=== PATIENT | female | born 1980 | race American Indian/Alaskan Native ===

== ENCOUNTER 2016-09-29 05:50 | Day surgery (SDC) | payer MEDICARE ==
[2016-09-24 10:37] LABS: Basophils % (Auto) 1.6 % (0.0-1.8); Eosinophils % (Auto) 0.8 % (0.0-4.3); Hematocrit 28.7 % (30.3-42.9); Hemoglobin 8.7 gm/dl (10.1-14.3); Mean Corpuscular HGB Conc 30 % (30-34); Platelet Count 280 K/mm3 (140-440); Red Blood Count 4.14 M/mm3 (3.65-5.03); Red Cell Distribution Width 18.6 % (13.2-15.2); White Blood Count 3.9 K/mm3 (4.5-11.0)
[2016-09-24 10:40] LABS: Mean Corpuscular Hemoglobin 21 pg (28-32); Mean Corpuscular Volume 69 fl (79-97)
[2016-09-29] MEDS ORDERED: NACL 0.9% 1000 ML 1,000 ML IV SCH (06:00)
[2016-09-29] MEDS ORDERED: VERSED IV NR (06:00)
[2016-09-29] MEDS ORDERED: NACL BACTERIOSTATIC INFILTRATI ONE (06:52)
[2016-09-29] MEDS: PEPCID PO NR (06:58)
[2016-09-29] MEDS ORDERED: DIPRIVAN 10 MG/ML IV ONE (07:28)
[2016-09-29] MEDS ORDERED: DILAUDID ONE ×2 (07:29→08:39)
[2016-09-29] MEDS ORDERED: DECADRON ONE (07:43)
[2016-09-29] MEDS ORDERED: XYLOCAINE MPF 2% ONE (07:44)
[2016-09-29] MEDS ORDERED: NACL 0.9% IR ONE (08:00)
[2016-09-29] MEDS ORDERED: TORADOL ONE (08:06)
[2016-09-29] MEDS ORDERED: ZOFRAN ONE (08:06)
[2016-09-29 11:05] VITALS: BP 124/84
--- NOTE | 2016-09-29 15:23 | Operative Report ---
Operative Report Operative Report: Date of procedure: 09/29/2016 Pre-operative diagnosis: Dysfunctional uterine bleeding Post-operative diagnosis: Same as above Procedure name(s): Hysteroscopy; endometrial ablation via NovaSure Surgeon: Mindi Albarran M.D. Pastry Decorator: None Anesthesia: General endotracheal anesthesia Findings thickened endometrium Indication: 36-year-old 005 with a history of dysfunctional uterine bleeding. Patient had attempted medical management but is limited secondary to her history of DVT. Procedure The patient was taken to the operating room and given general tracheal anesthesia without complication. The patient was prepped and draped in a normal sterile fashion. A bivalve speculum was placed in the patient's vagina single-tooth tenaculums placed on the anterior lip of the cervix. The cervical os was dilated with graduated dilators. A uterine sound was inserted. The hysteroscope was then placed. Insufflation of the uterine cavity was performed with normal saline. Gen. survey of the uterine cavity revealed thickened endometrium. The hysteroscope was then removed. The NovaSure device was then inserted. The endometrial length was 6.0 and the uterine width was 4.3 cm. The device was engaged and it passed the surveillance of the uterine cavity. The NovaSure device was then deployed with a energy of 142 that lasted for 53 seconds. The NovaSure device was then removed. The hysteroscope was again reinserted. There was evidence of charring of the endometrial surface. The remainder of the vaginal instruments were then removed atraumatically. The patient was then successfully extubated taken to the recovery room. All sponge laps and needle counts were correct 2.
== END 2016-09-29 05:51 | disposition home or self-care (01) ==
LOC: OR 05:50
PROVIDERS: ATTEND Obstetrics & Gynecology
DX: N93.8 Other specified abnormal uterine and vaginal bleeding (principal); F32.9 Major depressive disorder, single episode, unspecified; F41.9 Anxiety disorder, unspecified; D64.9 Anemia, unspecified; Z98.51 Tubal ligation status; Z72.89 Other problems related to lifestyle; Z86.718 Personal history of other venous thrombosis and embolism
CPT/HCPCS: 36415; 58563; 84703; 85025; A4217; J1100; J1170; J1885; J2250; J2405; J2704; J7030

== ENCOUNTER 2017-07-15 08:43 | Day surgery (SDC) | payer MEDICARE ==
[2017-07-15] MEDS ORDERED: NACL 0.9% 1000 ML 1,000 ML IV SCH (09:00)
[2017-07-15] MEDS ORDERED: ANCEF/STERILE WATER 2 GM/20 ML 2 GM/20 ML SYRINGE IV NR (09:00)
--- NOTE | 2017-07-15 09:03 | History and Physical Report ---
History of Present Illness Date of examination: 07/15/17 Chief complaint: dysfunctional uterine bleeding History of present illness: Pt is a 37 year old -French female presents for endometrial sampling secondary to pt inability to tolerated in office biopsy. She has a h/o multiple DVTs and reports being non-compliant with her prescribed Coumadin, last dose in 2015. Past History Past Medical History: deep vein thrombosis (2002, 2003 and 2015), other ( depression, anxiety ) Past Surgical History: THERAPIST RESPIRATORY/uterine surgery (tubal ligation; endometrial ablation , ) Family/Genetic History: hypertension Social history: no significant social history Medications and Allergies Allergies Allergy/AdvReac Type Severity Reaction Status Date / Time No Known Allergies Allergy Verified 07/12/17 14:37 Home Medications Medication Instructions Recorded Confirmed Last Taken Type No Known Home Medications [No 07/12/17 07/12/17 Unknown History Reported Home Medications] Active Meds: Active Medications Cefazolin Sodium (Ancef/Sterile Water 2 Gm/20 Ml) 2 gm in 20 mls @ 80 mls/hr IV PREOP NR PRN Reason: Protocol Sodium Chloride (Nacl 0.9% 1000 Ml) 1,000 mls @ 100 mls/hr IV DIRECT IRENE Review of Systems All systems: negative - Physical Exam Breasts: Positive: deferred Cardiovascular: Regular rate Lungs: Positive: Clear to auscultation Abdomen: Positive: soft Extremities: Negative: tenderness, edema Results All other labs normal. Assessment and Plan A: Dysfunctional Uterine Bleeding Inability to tolerate in-office biopsy H/o DVT non-compliant with anticoagulation P: Lower extremity venous dopplers If negative, Heparin 5000 units subcu and SCDs for DVT prophylaxis during dilation and curettage with hysteroscopy.
--- NOTE | 2017-07-15 10:24 | Anesthesia Consultation ---
Anesthesia Consult and Med Hx Date of service: 07/15/17 - Airway Anesthetic Teeth Evaluation: Good ROM Head & Neck: Adequate Mental/Hyoid Distance: Adequate Mallampati Class: Class II Intubation Access Assessment: Good - Pulmonary Exam CTA: Yes - Cardiac Exam Cardiac Exam: No Murmur - Pre-Operative Health Status ASA Pre-Surgery Classification: ASA1 Proposed Anesthetic Plan: General - Central Nervous System Hx Psychiatric Problems: Yes - Gastrointestinal Hx Gastroesophageal Reflux Disease: No - Endocrine Hx Thyroid Disease: No - Hematic Hx Anemia: Yes (resolved) - Other Systems Hx Alcohol Use: Yes (occas) Hx Cancer: No
--- NOTE | 2017-07-15 10:24 | Anesthesia Day of Surgery ---
Anesthesia Day of Surgery - Day of Surgery Patient Examined: Yes Patient H&P Reviewed: Yes Patient is NPO: Yes
[2017-07-15 10:58] LABS: INR 0.95 (0.87-1.13)
[2017-07-15 11:00] LABS: Hematocrit 30.5 % (30.3-42.9); Hemoglobin 9.4 gm/dl (10.1-14.3); Mean Corpuscular HGB Conc 31 % (30-34); Mean Corpuscular Volume 72 fl (79-97); Platelet Count 307 K/mm3 (140-440); Red Blood Count 4.26 M/mm3 (3.65-5.03); White Blood Count 3.6 K/mm3 (4.5-11.0)
[2017-07-15] MEDS ORDERED: VERSED IV NR (11:00)
[2017-07-15 11:06] LABS: Mean Corpuscular Hemoglobin 22 pg (28-32)
[2017-07-15] MEDS ORDERED: MONSEL'S TP ONE (11:12)
[2017-07-15] MEDS ORDERED: SILVER NITRATE TP ONE ×2 (11:12→12:36)
[2017-07-15] MEDS ORDERED: HEPARIN SUB-Q NR (11:15)
[2017-07-15] MEDS ORDERED: DIPRIVAN 10 MG/ML IV ONE (11:37)
[2017-07-15] MEDS ORDERED: SUBLIMAZE ONE (11:37)
[2017-07-15] MEDS ORDERED: XYLOCAINE MPF 2% ONE (11:50)
[2017-07-15] MEDS ORDERED: NACL 0.9% IR ONE ×2 (12:22)
[2017-07-15] MEDS ORDERED: ZOFRAN ONE (12:47)
[2017-07-15] MEDS ORDERED: NACL 0.9% 1000 ML 1,000 ML ONE (12:48)
--- NOTE | 2017-07-15 12:52 | Operative Report ---
Operative Report Operative Report: Date of procedure: 07/15/17 Preoperative diagnosis: 1) Dysfunctional Uterine Bleeding 2) H/o endometrial ablation 3) H/o DVT Postoperative diagnosis: Same Procedure: 1) Hysteroscopy 2) Dilation and curettage Surgeon: Summer Marquez M.D. Anesthesia: Gen. with LMA Findings: Small anteverted uterus Shaggy endometrium EBL: Minimal IV fluid: 900 mL Urine output: 200 mL prior to the procedure Drains: None Specimens: Endometrial curettings to pathology Complications: None. Counts correct 2 Physician: Stable to PACU Indication for procedure: Patient is a 37-year-old female 5 para 6006 who presents with a history of dysfunctional uterine bleeding and a prior endometrial ablation who presents for endometrial sampling secondary to inability to tolerate in office biopsy. Operation in detail: After the risks, benefits, alternatives, complications the procedure were explained to the patient she gave informed consent for the procedure. She received heparin 5000 units subcutaneously preoperatively. When taken to the operating room and placed in the dorsal supine position with her IV noted to be running well at her SCDs noted to be functioning. General anesthesia was induced without difficulty. She was ultimately placed in the dorsal lithotomy position and prepped and draped in normal sterile fashion. A timeout was performed. A catheter was used to drain the bladder of 200 mL of clear urine. An open sided bivalve speculum was placed into the vagina for adequate visualization of the cervix. The anterior lip of the cervix was then grasped with single-tooth tenaculum. The uterus was then gently sounded to 7 cm. The cervix was then dilated sequentially with Clifford dilators to a #15 with some difficulty. An 5 mm hysteroscope was then used to visualize the endometrial cavity which revealed shaggy endometrium and some difficulty passing the hysteroscope to the fundus. At this time hysteroscope was removed and anticipate patient safety. A gentle sharp endometrial curettage was performed and the curettings were sent to pathology. At this time attention is removed atraumatically from the uterus and vagina and the procedure was ended. The patient was returned to the dorsal supine position and extubated without difficulty. She subsequently taken to the PACU in stable condition. The patient tolerated the procedure well and all instrument and raytec counts were correct 2.
--- NOTE | 2017-07-15 12:57 | Short Stay Summary ---
Short Stay Documentation Date of service: 07/15/17 - History H&P: dictated Social history: no significant social history - Allergies and Medications Current Medications: Allergies No Known Allergies Allergy (Verified 07/12/17 14:37) Home Medications Medication Instructions Recorded Confirmed Last Taken Type RX: No Known Home Medications [No 07/12/17 07/12/17 Unknown History Reported Home Medications] Active Medications Heparin Sodium (Porcine) (Heparin) 5,000 unit SUB-Q PREOP NR Stop: 07/15/17 13:00 Last Admin: 07/15/17 11:06 Dose: 5,000 unit Cefazolin Sodium (Ancef/Sterile Water 2 Gm/20 Ml) 2 gm in 20 mls @ 80 mls/hr IV PREOP NR PRN Reason: Protocol Stop: 07/15/17 15:00 Sodium Chloride (Nacl 0.9% 1000 Ml) 1,000 mls @ 100 mls/hr IV DIRECT IRENE Last Admin: 07/15/17 10:57 Dose: 100 mls/hr Midazolam HCl (Versed) 2 mg IV ONCE NR Stop: 07/15/17 14:00 Last Admin: 07/15/17 10:58 Dose: 2 mg - Physical exam Breasts: deferred - Brief post op/procedure progress note Date of procedure: 07/15/17 Pre-op diagnosis: Dysfunctional Uterine Bleeding Post-op diagnosis: same Procedure: Hysteroscopy, dilation and curettage Anesthesia: GETA (LMA) Findings: Small anteverted uterus Shaggy endometrium Surgeon: RITA MARQUEZ Estimated blood loss: minimal Pathology: list (endometrial curettings) Specimen disposition: to lab Condition: stable - Hospital course Hospital course: Pt underwent hysteroscopy, dilation and curettage which she tolerated well. She was observed in the PACU until she met discharge criteria. She will follow up in 2 weeks in office with Dr Marquez. - Disposition Condition at discharge: Stable Disposition: DC-01 TO HOME OR SELFCARE - Discharge Diagnoses (1) Dysfunctional uterine bleeding Status: Acute (2) H/O deep venous thrombosis Status: Acute Short Stay Discharge Plan Activity: other (Nothing in vagina x 4 weeks ) Weight Bearing Status: Full Weight Bearing Diet: regular Follow up with: COREY BLOCK MD [Primary Care Provider] - 7 Days RITA MARQUEZ MD [Staff Physician] - 08/01/17 (postoperative appt- please call the office to schedule. ) Forms: Outpatient Surgery DC Inst. Prescriptions: Ibuprofen [Motrin] 800 mg PO Q8HR PRN #30 tablet PRN Reason: Pain oxyCODONE /ACETAMINOPHEN [Percocet 5/325] 1 tab PO Q6HR PRN #20 tablet PRN Reason: Pain
[2017-07-15] MEDS: DILAUDID IV PRN ×2 (13:00→13:10)
[2017-07-15] MEDS ORDERED: DILAUDID ONE (13:04)
[2017-07-15] MEDS ORDERED: MOTRIN PO PRN (13:30)
[2017-07-15 14:16] VITALS: BP 123/79
--- NOTE | 2017-07-17 14:39 | Vascular Lab Report ---
LOWER EXTREMITY VENOUS DUPLEX: REASON FOR EXAM: Preop evaluation. COMMENTS ON THE RIGHT: All veins visualized are freely compressible without evidence of internal echogenicity. Flow is spontaneous and phasic throughout. COMMENTS ON THE LEFT: Evidence of internal echogenicity in the left common and superficial femoral vein and popliteal. The remaining veins visualized are freely compressible without evidence of internal echogenicity. Spontaneous and phasic flow is present proximally.Flow is spontaneous and phasic throughout. IMPRESSION: No evidence of acute deep venous thrombosis in either lower extremity. There is presence of chronic recanalized DVT in the left common femoral vein, superficial femoral vein and popliteal.
== END 2017-07-15 15:05 | disposition home or self-care (01) ==
LOC: OR 08:43
PROVIDERS: ATTEND Obstetrics & Gynecology
DX: N93.8 Other specified abnormal uterine and vaginal bleeding (principal); N71.9 Inflammatory disease of uterus, unspecified; I10 Essential (primary) hypertension; F32.9 Major depressive disorder, single episode, unspecified; F41.9 Anxiety disorder, unspecified; Z86.718 Personal history of other venous thrombosis and embolism; Z98.890 Other specified postprocedural states; Z98.51 Tubal ligation status; Z79.899 Other long term (current) drug therapy
CPT/HCPCS: 36415; 58558; 81025; 85027; 85610; 85730; 86850; 86900; 86901; 88305; 93970; A4217; J0690; J1170; J1644; J2250; J2405; J2704; J3010; J7030

== ENCOUNTER 2017-10-03 09:04 | Outpatient (CLI) | payer OTHER ==
--- NOTE | 2017-10-03 10:56 | XRay Report ---
XRAY LUMBAR SPINE THREE VIEWS: 10/03/17 09:04:00 CLINICAL: Back pain. FINDINGS: Mild lower lumbar dextroscoliosis. Normal vertebral body height, alignment and disc spaces. Lower lumbar facet joint sclerosis. The pedicles are intact. No fracture. Normal soft tissues. IMPRESSION: Mild lower lumbar scoliosis and lower lumbar facet joint arthropathy.
== END 2017-10-03 09:05 | disposition home or self-care (01) ==
LOC: XRAY 09:04
PROVIDERS: ATTEND Internal Medicine
DX: M41.86 Other forms of scoliosis, lumbar region (principal); M12.88 Other specific arthropathies, not elsewhere classified, other specified site; F32.9 Major depressive disorder, single episode, unspecified; F41.9 Anxiety disorder, unspecified; I74.9 Embolism and thrombosis of unspecified artery
CPT/HCPCS: 72100

== ENCOUNTER 2018-02-27 19:47 | Emergency (ER) | payer MEDICAID, OTHER ==
[2018-02-27 20:05] VITALS: BP 125/84
[2018-02-27] MEDS ORDERED: PERCOCET 5/325 PO ONE (21:52)
--- NOTE | 2018-02-27 22:07 | Emergency Department Report ---
Abscess Boil [facility] Chief Complaint: Skin/Abscess/Foreign Body Stated Complaint: BOIL ON LEG Time Seen by Provider: 02/27/18 21:52 Duration: 1 Day Home Medications: Previous Rx's Medication Instructions Recorded Last Taken Type Ibuprofen [Motrin] 800 mg PO Q8HR PRN #30 tablet 07/15/17 Unknown Rx oxyCODONE /ACETAMINOPHEN [Percocet 1 tab PO Q6HR PRN #20 tablet 07/15/17 Unknown Rx 5/325] Allergies/Adverse Reactions: Allergies Allergy/AdvReac Type Severity Reaction Status Date / Time No Known Allergies Allergy Verified 02/27/18 19:59 ED Review of Systems ROS: Stated complaint: BOIL ON LEG Other details as noted in HPI ED Past Medical Hx - Past Medical History Previous Medical History?: Yes Hx Deep Vein Thrombosis: Yes Additional medical history: Blood clot in left leg (03,04,14) and groin area 14 - Surgical History Past Surgical History?: Yes Additional Surgical History: tubal ligation - Social History Smoking Status: Never Smoker Substance Use Type: Alcohol - Medications Home Medications: Home Medications Medication Instructions Recorded Confirmed Last Taken Type Ibuprofen [Motrin] 800 mg PO Q8HR PRN #30 tablet 07/15/17 Unknown Rx oxyCODONE /ACETAMINOPHEN [Percocet 1 tab PO Q6HR PRN #20 tablet 07/15/17 Unknown Rx 5/325] ED Abscess Boil Physical Exam - Exam General: Vital signs noted. No distress. Alert and acting appropriately. ED Course Vital Signs 02/27/18 20:00 Temperature 98.8 F Pulse Rate 93 H Respiratory 18 Rate Blood Pressure 125/84 O2 Sat by Pulse 100 Oximetry Critical care attestation.: If time is entered above; I have spent that time in minutes in the direct care of this critically ill patient, excluding procedure time. ED Disposition Condition: Stable Referrals: PRIMARY CARE, [Primary Care Provider] - 3-5 Days
--- NOTE | 2018-02-27 22:11 | Emergency Department Report ---
ED General Adult HPI - General Chief complaint: Skin/Abscess/Foreign Body Stated complaint: BOIL ON LEG Time Seen by Provider: 02/27/18 21:52 Source: patient Mode of arrival: Ambulatory Limitations: No Limitations - History of Present Illness Initial comments: 38-year-old -Brazilian female presents to the emergency room with complaint of a possible abscess between her legs today. Patient reports the pain as a 9 out of 10. Patient reports currently takes no medications has no known drug allergies and has a history of DVTs 5 in the left leg. -: This morning Location: buttocks Severity scale (0 -10): 9 Consistency: constant Worsens with: other (sitting on her bottom) Associated Symptoms: denies other symptoms Treatments Prior to Arrival: none - Related Data Previous Rx's Medication Instructions Recorded Last Taken Type Ibuprofen [Motrin] 800 mg PO Q8HR PRN #30 tablet 07/15/17 Unknown Rx oxyCODONE /ACETAMINOPHEN [Percocet 1 tab PO Q6HR PRN #20 tablet 07/15/17 Unknown Rx 5/325] Hydrocortisone [Anusol-Hc] 30 gm RC Q8H PRN #1 box 02/27/18 Unknown Rx traMADol [Ultram 50 MG tab] 50 mg PO Q6HR PRN #12 tablet 02/27/18 Unknown Rx Allergies Allergy/AdvReac Type Severity Reaction Status Date / Time No Known Allergies Allergy Verified 02/27/18 19:59 ED Review of Systems ROS: Stated complaint: BOIL ON LEG Other details as noted in HPI Constitutional: denies: chills, fever Gastrointestinal: denies: abdominal pain, nausea, diarrhea Skin: lesions ED Past Medical Hx - Past Medical History Previous Medical History?: Yes Hx Deep Vein Thrombosis: Yes Additional medical history: Blood clot in left leg (03,04,14) and groin area 14 - Surgical History Past Surgical History?: Yes Additional Surgical History: tubal ligation - Social History Smoking Status: Never Smoker Substance Use Type: Alcohol - Medications Home Medications: Home Medications Medication Instructions Recorded Confirmed Last Taken Type Ibuprofen [Motrin] 800 mg PO Q8HR PRN #30 tablet 07/15/17 Unknown Rx oxyCODONE /ACETAMINOPHEN [Percocet 1 tab PO Q6HR PRN #20 tablet 07/15/17 Unknown Rx 5/325] Hydrocortisone [Anusol-Hc] 30 gm RC Q8H PRN #1 box 02/27/18 Unknown Rx traMADol [Ultram 50 MG tab] 50 mg PO Q6HR PRN #12 tablet 02/27/18 Unknown Rx ED Physical Exam - General Limitations: No Limitations General appearance: alert, in no apparent distress - Head Head exam: Present: atraumatic, normocephalic - Eye Eye exam: Present: EOMI - ENT ENT exam: Present: mucous membranes moist - Rectal Rectal exam: Present: normal rectal tone, hemorrhoids (non-strangulated or incarcerated external hemorrhoid) - Neurological Exam Neurological exam: Present: alert, oriented X3 - Psychiatric Psychiatric exam: Present: normal affect, normal mood ED Course Vital Signs 02/27/18 20:00 Temperature 98.8 F Pulse Rate 93 H Respiratory 18 Rate Blood Pressure 125/84 O2 Sat by Pulse 100 Oximetry - Procedure Description Procedures done: Able to reduce hemorrhoid using gel lubricant. Patient was able to tolerated procedure well. ED Medical Decision Making - Medical Decision Making Patient has been evaluated by this provider fast track. Patient is given a Percocet for pain management. External hemorrhoid was able to be reduced by this provider with lubrication gel and digital rectal exam Discussed patient she needs to follow up with the procurement agent for further evaluation and treatment plan Discussed patient that is her hemorrhoid protrudes again with increased pain turns bluish or blackness she needs to return to the ER immediately. Discussed patient to take pain medication that I have prescribed for her. Patient has verbalized understanding. Critical care attestation.: If time is entered above; I have spent that time in minutes in the direct care of this critically ill patient, excluding procedure time. ED Disposition Clinical Impression: External hemorrhoid Disposition: DC-01 TO HOME OR SELFCARE Is pt being admited?: No Does the pt Need Aspirin: No Condition: Stable Instructions: Hemorrhoids (ED) Additional Instructions: Please use Anusol as needed for external hemorrhoids, and all for severe pain. Please follow-up with your procurement agent I have listed one below Prescriptions: Hydrocortisone [Anusol-Hc] 30 gm RC Q8H PRN #1 box PRN Reason: Hemorrhoids traMADol [Ultram 50 MG tab] 50 mg PO Q6HR PRN #12 tablet PRN Reason: Pain Referrals: PRIMARY CARE, [Primary Care Provider] - 3-5 Days [facility] [Provider Group] - 3-5 Days [facility] [Provider Group] - 3-5 Days Forms: Work/School Release Form(ED)
== END 2018-02-27 22:19 | disposition home or self-care (01) ==
LOC: ED 19:47
DX: K64.4 Residual hemorrhoidal skin tags (principal); Z86.718 Personal history of other venous thrombosis and embolism; Z98.51 Tubal ligation status
CPT/HCPCS: 99283

== ENCOUNTER 2018-09-06 06:07 | Observation (INO) | payer MEDICARE ==
[2018-08-31 12:21] LABS: Basophils % (Auto) 0.8 % (0.0-1.8); Eosinophils # (Auto) 0.1 K/mm3 (0.0-0.4); Eosinophils % (Auto) 1.6 % (0.0-4.3); Hematocrit 31.3 % (30.3-42.9); Hemoglobin 9.6 gm/dl (10.1-14.3); Lymphocytes # (Auto) 1.5 K/mm3 (1.2-5.4); Lymphocytes % (Auto) 32.3 % (13.4-35.0); Mean Corpuscular HGB Conc 31 % (30-34); Mean Corpuscular Volume 74 fl (79-97); Monocytes # (Auto) 0.3 K/mm3 (0.0-0.8); Monocytes % (Auto) 6.1 % (0.0-7.3); Platelet Count 302 K/mm3 (140-440); Red Blood Count 4.25 M/mm3 (3.65-5.03)
--- NOTE | 2018-09-01 07:20 | Anesthesia Consultation ---
Anesthesia Consult and Med Hx Date of service: 09/06/18 - Airway Anesthetic Teeth Evaluation: Good ROM Head & Neck: Adequate Mental/Hyoid Distance: Adequate Mallampati Class: Class II Intubation Access Assessment: Probably Good - Pulmonary Exam CTA: Yes - Cardiac Exam Cardiac Exam: RRR - Pre-Operative Health Status ASA Pre-Surgery Classification: ASA3 - Pulmonary Hx Smoking: No Hx Asthma: No Hx Respiratory Symptoms: No - Cardiovascular System Hx Hypertension: No - Central Nervous System Hx Psychiatric Problems: Yes - Gastrointestinal Hx Gastroesophageal Reflux Disease: No - Endocrine Hx Non-Insulin Dependent Diabetes: Yes Hx Thyroid Disease: No - Hematic Hx Anemia: Yes - Other Systems Hx Alcohol Use: Yes (occas) Hx Cancer: No - Additional Comments Anesthesia Medical History Comments: No GAC, No FHAC
--- NOTE | 2018-09-05 14:06 | History and Physical Report ---
History of Present Illness Date of examination: 09/06/18 Date of admission: 09/06/2018 Chief complaint: dysfunctional uterine bleeding History of present illness: 38y/o with the complaint of abnormal uterine bleeding. The patient reports clots and flooding her menses. She often times has to use double protection secondary to the excessive blood. The patient has had an endometrial ablation without significant improvement in her symptoms. Pelvic ultrasound has minimal findings. Past History Past Medical History: deep vein thrombosis, other (depression) Past Surgical History: other (endometrial ablation; tubal ligation) Social history: single - Obstetrical History : 5 Para: 5 Hx # Term Pregnancies: 5 Number of Pregnancies: 0 Spontaneous Abortions: 0 Induced : 0 Number of Living Children: 6 Medications and Allergies Allergies Allergy/AdvReac Type Severity Reaction Status Date / Time No Known Allergies Allergy Verified 08/24/18 11:08 Home Medications Medication Instructions Recorded Confirmed Last Taken Type traMADol [Ultram 50 MG tab] 50 mg PO Q6HR PRN #12 tablet 02/27/18 08/24/18 Unknown Rx Apixaban [Eliquis] 5 mg PO DAILY #30 tablet 06/27/18 08/31/18 08/24/18 Rx traMADol [Ultram 50 MG tab] 50 mg PO Q4HR PRN #14 tablet 06/27/18 08/24/18 Unknown Rx - Vital Signs Vital signs: Vital Signs Temp Pulse Resp BP 98.8 F 100 H 20 138/92 08/31/18 11:50 08/31/18 11:50 08/31/18 11:50 08/31/18 11:50 Temp Pulse Resp BP Pulse Ox 98.8 F 100 H 20 138/92 08/31/18 11:50 08/31/18 11:50 08/31/18 11:50 08/31/18 11:50 - Physical Exam Breasts: Positive: deferred Cardiovascular: Regular rate Lungs: Positive: Clear to auscultation Abdomen: Positive: normal appearance Results Result Diagrams: 08/31/18 11:55 All other labs normal. Assessment and Plan - Patient Problems (1) Dysfunctional uterine bleeding Status: Acute Plan to address problem: scheduled for a robotic hysterectomy and salpingectomy (2) H/O deep venous thrombosis Status: Acute (3) History of iron deficiency anemia Status: Acute (4) Menorrhagia Status: Acute
[~2018-09-06 06:07] MED LIST: ANCEF/STERILE WATER 2 GM/20 ML 2 GM/20 ML SYRINGE IV SCH
[2018-09-06] MEDS ORDERED: LACTATED RINGERS 1,000 ML IV SCH (07:00)
[2018-09-06] MEDS ORDERED: XYLOCAINE MPF 2% ONE (07:14)
[2018-09-06] MEDS ORDERED: DILAUDID ONE (07:14)
[2018-09-06] MEDS ORDERED: DIPRIVAN 10 MG/ML IV ONE (07:14)
[2018-09-06] MEDS ORDERED: ZEMURON IV ONE (07:14)
[2018-09-06] MEDS ORDERED: VERSED ONE (07:29)
[2018-09-06] MEDS ORDERED: SUBLIMAZE ONE (07:30)
[2018-09-06] MEDS ORDERED: DECADRON ONE ×2 (07:31→08:52)
[2018-09-06] MEDS ORDERED: XYLOCAINE 1% 20 mL ONE (07:34)
[2018-09-06] MEDS ORDERED: THROMBIN (BOVINE) TP ONE ×2 (07:43→09:45)
[2018-09-06] MEDS ORDERED: GELFOAM POWDER 1GM MM ONE ×2 (07:43→09:45)
[2018-09-06] MEDS ORDERED: NEOSPORIN GU IR ONE (07:43)
--- NOTE | 2018-09-06 07:51 | Anesthesia Day of Surgery ---
Anesthesia Day of Surgery - Day of Surgery Patient Examined: Yes Patient H&P Reviewed: Yes Patient is NPO: Yes
[2018-09-06] MEDS ORDERED: DILAUDID IV PRN (08:48)
[2018-09-06] MEDS ORDERED: DEMEROL IV PRN (08:48)
[2018-09-06] MEDS ORDERED: ZOFRAN IV PRN (08:48)
--- NOTE | 2018-09-06 08:50 | Anesthesia Day of Surgery ---
Anesthesia Day of Surgery - Day of Surgery Patient Examined: Yes Patient H&P Reviewed: Yes Patient is NPO: Yes
[2018-09-06] MEDS ORDERED: ANCEF/STERILE WATER 2 GM/20 ML IV NR (09:00)
[2018-09-06] MEDS ORDERED: NACL 0.9% IR ONE (09:45)
[2018-09-06] MEDS ORDERED: BLOXIVERZ ONE ×2 (09:54)
[2018-09-06] MEDS ORDERED: ROBINUL ONE (09:54)
[2018-09-06] MEDS ORDERED: NARCAN 0.4 MG/1 ML IV PRN (09:56)
--- NOTE | 2018-09-06 09:56 | Operative Report ---
Operative Report Operative Report: Date of surgery: 09/06/2018 Preoperative diagnoses: Dysfunctional uterine bleeding Postoperative diagnoses: Same as above Procedure: Robotic hysterectomy and bilateral salpingectomy Surgeon: Mindi Albarran M.D. Feed Manager: Marcia Marquez Anesthesia: Gen. endotracheal anesthesia Estimated blood loss: 100 mL Pathology: Uterus, cervix, bilateral tubes Indication: 38-year-old with a history of dysfunctional uterine bleeding. The patient has a history of a prior endometrial ablation however c ontinued to have abnormal bleeding status post the procedure. Procedure: The patient was taken to the operating room and given general endotracheal anesthesia without complication. She is prepped and draped in a normal sterile fashion. A bivalve speculum was placed in the patient's vagina and a single- tooth tenaculum placed on the anterior lip of the cervix. The uterus was sounded with the uterine sound. A Windward uterine manipulator was placed in the bivalve speculum was then removed. Attention was then turned to the patient's abdomen where a millimeter supra umbilical skin incision was then made. A Veress needle was placed and peritoneal entry was verified water-filled syringe. Insufflation of the peritoneal cavity was performed with CO2 gas. The 12 mm trocar was then placed under direct visualization. An additional 8 mm trocar was placed on the patient's left and right lateral side just opposite of the supraumbilical trocar. An additional 5 mm right lateral trocar was then placed as the accessory port. The patient was then placed in steep Trendelenburg. The da Nasreen robot was then engaged. A fenestrated forcep was placed in arm 2 and a vessel sealer was placed in arm 1. The surgeon then transferred to the surgical console. General survey of the patient's abdomen and pelvis revealed a normal uterus tubes and ovaries bilaterally. The mesosalpinx was then isolated on the right. The vessel sealer was used to coagulate the mesosalpinx which was then transected. The tube was transected from the ovary. The tubo-ovarian ligament was then coagulated and transected. The round ligament was then coagulated and transected also. The vesicouterine peritoneum was then entered from the patient's right side. The uterine vessels were then coagulated with the vessel sealer. The vessels were then transected . Attention was then turned to the patient's left side where the tubo-ovarian ligament and mesosalpinx were again isolated coagulated and transected. The vesical peritoneum was then entered from the left and joined in the midline. Peritoneum was reflected off of the lower uterine segment. Uterine vessels were then coagulated and then transected . The blood supply to the uterus was adequately contained, a posterior colpotomy was made. The V care ring was visualized. Posterior colpotomy was created with the monopolar scissors. The incision was continued circumferentially until anterior colpotomy was made. The cervix and uterus were amputated from the vaginal cuff. The uterus was then removed along with the tubes bilaterally through the vagina and a warm laparotomy sponge was placed and maintain the pneumoperitoneum. The vaginal cuff was then closed in a running fashion with V lock suture. Irrigation of the pelvis was performed. Gelfoam with thrombin was applied to the incision. The supraumbilical 12 mm trocar site was closed with the Eder Luong device. The skin was then reapproximated with 4-0 Monocryl. The tissue was sent to pathology which included the cervix and uterus. The patient was then successfully extubated. She was then taken to the recovery room in stable condition. All sponge laps and needle counts were correct x2.
[2018-09-06] MEDS ORDERED: PERCOCET 5/325 PO PRN (09:58)
[2018-09-06] MEDS ORDERED: IBUPROFEN PO PRN (09:58)
[2018-09-06] MEDS ORDERED: MILK OF MAGNESIA PO PRN (09:58)
[2018-09-06] MEDS ORDERED: AMBIEN PO PRN (09:58)
[2018-09-06] MEDS: MORPHINE PCA 30MG/30ML IV SCH (10:42)
[2018-09-06] MEDS ORDERED: LACTATED RINGERS 1,000 ML ONE (11:15)
[2018-09-06] MEDS: TORADOL IV SCH ×2 (11:23→18:56)
[2018-09-06] MEDS: D5LR 1,000 ML IV SCH ×2 (15:17→22:07)
--- NOTE | 2018-09-06 17:30 | Post Anesthesia Evaluation ---
- Post Anesthesia Evaluation Patient Participated: Yes Airway Patent: Yes Stable Respiratory Function: Yes Nausea/Vomiting: No Temp > 96.8F: Yes Pain Manageable: Yes Adequeate Hydration: Yes Anesthesia Complications: No
[2018-09-06] MEDS ORDERED: LOVENOX SUB-Q SCH (22:00)
[2018-09-06] MEDS: TYLENOL PO PRN (22:07)
[2018-09-07] MEDS: TORADOL IV SCH ×2 (00:07→05:46)
[2018-09-07] MEDS: MORPHINE PCA 30MG/30ML IV SCH (03:49)
[2018-09-07] MEDS: TYLENOL PO PRN (04:01)
[2018-09-07] MEDS: D5LR 1,000 ML IV SCH (04:02)
[2018-09-07 06:23] LABS: Hematocrit 25.4 % (30.3-42.9); Hemoglobin 7.8 gm/dl (10.1-14.3)
[2018-09-07 06:45] LABS: BUN/Creatinine Ratio 10; Blood Urea Nitrogen 6 mg/dL (7-17); Calcium 8.3 mg/dL (8.4-10.2); Hemolysis Index 8
--- NOTE | 2018-09-07 08:32 | Progress Note ---
Assessment and Plan - Patient Problems (1) Dysfunctional uterine bleeding Current Visit: No Status: Acute Plan to address problem: patient doing well (2) H/O deep venous thrombosis Current Visit: No Status: Acute (3) History of iron deficiency anemia Current Visit: No Status: Acute (4) Menorrhagia Current Visit: No Status: Acute Subjective - Subjective Date of service: 09/07/18 Interval history: Patient has not voided yet. Tolerating regular diet. Pain is controlled Patient reports: appetite normal, pain well controlled Objective - Vital Signs Latest vital signs: Vital Signs Temp Pulse Resp BP BP Pulse Ox 09/07/18 05:10 98.6 F 72 16 118/79 09/06/18 23:30 98.7 F 74 18 117/61 09/06/18 19:30 98.7 F 71 18 126/69 09/06/18 18:00 18 09/06/18 16:25 98.5 F 96 H 18 109/64 09/06/18 16:00 18 09/06/18 12:00 16 09/06/18 11:55 98.6 F 91 H 16 128/85 100 09/06/18 11:53 14 09/06/18 11:30 75 14 110/70 100 09/06/18 11:23 14 09/06/18 11:15 97.2 F L 70 14 108/72 100 09/06/18 11:00 68 14 104/64 100 09/06/18 10:45 69 14 106/69 100 09/06/18 10:40 67 12 109/69 100 09/06/18 10:35 65 14 99/58 100 09/06/18 10:30 69 14 98/54 100 09/06/18 10:27 60 12 92/55 100 09/06/18 10:20 75 12 100 09/06/18 10:16 96.9 F L 74 10 L 100 Intake and Output 09/06/18 09/07/18 09/07/18 22:59 06:59 14:59 Intake Total 2096.603 5431.583 Output Total 1200 1600 Balance 314.167 -560.417 Intake: IV 854.167 739.583 D5lr 1,000 ml @ 125 mls/ 854.167 739.583 hr IV DIRECT IRENE Rx#: [id number] Oral 360 Intake, Free Water 300 300 Output: Urine 1200 1600 Indwelling Catheter 1200 1600 Other: Total, Intake Amount 360 Total, Output Amount 1200 800 Voiding Method Indwelling Catheter - Exam Abdomen: Present: normal appearance, soft - Labs Labs: Abnormal lab results 09/07/18 09/07/18 Range/Units 05:51 05:51 Hgb 7.8 L (10.1-14.3) gm/dl Hct 25.4 L (30.3-42.9) % BUN 6 L (7-17) mg/dL Creatinine 0.6 L (0.7-1.2) mg/dL Glucose 116 H (65-100) mg/dL Calcium 8.3 L (8.4-10.2) mg/dL
--- NOTE | 2018-09-07 08:34 | Discharge Summary ---
Providers - Providers Date of Admission: 09/06/18 09:58 Date of discharge: 09/07/18 Attending physician: SANGITA PISANO Primary care physician: JAGUAR HALLMAN Hospitalization Reason for admission: other (DUB) Procedure: other (Robotic hysterectomy) Discharge diagnosis: other (DUB) Hospital course: Patient admitted the day of surgery and underwent a robotic hysterectomy. See op note. Postop uncomplicated Condition at discharge: Good Disposition: DC-01 TO HOME OR SELFCARE - Discharge Diagnoses (1) Dysfunctional uterine bleeding Status: Acute (2) H/O deep venous thrombosis Status: Acute (3) History of iron deficiency anemia Status: Acute (4) Menorrhagia Status: Acute Plan - Discharge Medications Prescriptions: Docusate Sodium [Colace] 100 mg PO BID PRN #60 capsule PRN Reason: Constipation Ferrous Sulfate [Feosol 325 MG tab] 325 mg PO BID #60 tablet Oxycodone HCl/Acetaminophen [Percocet 7.5/325 mg] 1 each PO Q6HR PRN #30 tablet PRN Reason: Pain - Provider Discharge Summary Activity: no sex for 6 weeks, no heavy lifting 4 weeks, no strenuous exercise Diet: routine Instructions: routine Additional instructions: [] Smoking cessation referral if applicable(refer to patient education folder for contact #) [] Refer to [facility]'s [facility] Booklet Call your doctor immediately for: * Fever > 100.5 * Heavy vaginal bleeding ( >1 pad per hour) * Severe persistent headache * Shortness of breath * Reddened, hot, painful area to leg or breast * Drainage or odor from incision. * Keep incision clean and dry at all times and follow doctor's instructions regarding bathing/showering schedule followup in 4 weeks - Follow up plan
[2018-09-07 17:55] VITALS: BP 125/86
== END 2018-09-07 17:05 | disposition home or self-care (01) ==
LOC: OR 06:07 → OB 09:58
PROVIDERS: ADMIT Obstetrics & Gynecology; ATTEND Obstetrics & Gynecology
DX: N93.8 Other specified abnormal uterine and vaginal bleeding (principal); N92.1 Excessive and frequent menstruation with irregular cycle; Z86.2 Personal history of diseases of the blood and blood-forming organs and certain disorders involving the immune mechanism; Z86.718 Personal history of other venous thrombosis and embolism; Z09 Encounter for follow-up examination after completed treatment for conditions other than malignant neoplasm
CPT/HCPCS: 36415; 58571; 64450; 80048; 84703; 85014; 85018; 85025; 86850; 86900; 86901; 88307; 96372; 96374; 96375; 96376; A4649; G0378; J1100; J1170; J1650; J1885; J2250; J2270; J2405; J2704; J2710; J3010; J7120; J7121; S2900; 88302; 88309

== ENCOUNTER 2019-05-03 17:44 | Emergency (ER) | payer MEDICARE ==
[2019-05-03 17:51] VITALS: BP 127/88
--- NOTE | 2019-05-03 17:59 | Emergency Department Report ---
Blank Doc - Documentation Documentation: 39-year-old female that presents with left leg pain with hx of DVT. This initial assessment/diagnostic orders/clinical plan/treatment(s) is/are subject to change based on patient's health status, clinical progression and re- assessment by fellow clinical providers in the ED. Further treatment and workup at subsequent clinical providers discretion. Patient/guardians urged not to elope from the ED as their condition may be serious if not clinically assessed and managed. Initial orders include: 1- Patient sent to [facility] for further evaluation and treatment 2- Doppler US
== END 2019-05-03 22:08 | disposition left against medical advice (07) ==
LOC: ED 17:44
DX: M79.605 Pain in left leg (principal); Z53.21 Procedure and treatment not carried out due to patient leaving prior to being seen by health care provider

== ENCOUNTER 2019-05-04 22:02 | Emergency (ER) | payer MEDICARE ==
[2019-05-04] MEDS ORDERED: ZOFRAN ONE (22:12)
[2019-05-04] MEDS ORDERED: DILAUDID ONE (22:12)
--- NOTE | 2019-05-04 22:50 | Event Note ---
ED Screening Note Date of service: 05/04/19 Time: 22:47 ED Screening Note: 39 y/o female comes in with left leg swelling and SOB. Has a history DVT. She had left over lovenox and gave herself 40mg yesterday. Has had a hysterectomy in August. This initial assessment/diagnostic orders/clinical plan/treatment(s) is/are subject to change based on patients health status, clinical progression and re- assessment by fellow clinical providers in the ED. Further treatment and workup at subsequent clinical providers discretion. Patient/guardian urged not to elope from the ED as their condition may be serious if not clinically assessed and managed. Initial orders include:
--- NOTE | 2019-05-04 23:20 | Emergency Department Report ---
ED Shortness of Breath HPI - General Chief Complaint: Extremity Injury, Lower Stated Complaint: DVT Time Seen by Provider: 05/04/19 22:47 Source: patient Mode of arrival: Ambulatory Limitations: No Limitations - History of Present Illness Initial Comments: Patient is a 39-year-old female that presents emergency room with complaints of shortness of breath, left lower extremity swelling. Patient states her symptoms started 2 days ago. Patient states she's been traveling a lot lately. Patient states she's traveling via airplane multiple times a week over the past month. Patient states her shortness of breath is mild and intermittent. . Patient states she has a history of DVT. Patient states her DVT was 5 years ago. Patient states he had a hysterectomy in August of this year. Patient is not taking any medications. MD Complaint: shortness of breath, pain with inspiration -: Sudden Severity: mild Consistency: intermittent Improves With: nothing Worsens With: nothing Context: recent travel Associated Symptoms: lower extremity pain Treatments Prior to Arrival: none - Related Data Home Oxygen Therapy: No Previous Rx's Medication Instructions Recorded Last Taken Type traMADol [Ultram 50 MG tab] 50 mg PO Q6HR PRN #12 tablet 02/27/18 09/05/18 10:00 Rx Apixaban [Eliquis] 5 mg PO DAILY #30 tablet 06/27/18 08/24/18 Rx traMADol [Ultram 50 MG tab] 50 mg PO Q4HR PRN #14 tablet 06/27/18 09/05/18 22:00 Rx Docusate Sodium [Colace] 100 mg PO BID PRN #60 capsule 09/07/18 Unknown Rx Ferrous Sulfate [Feosol 325 MG tab] 325 mg PO BID #60 tablet 09/07/18 Unknown Rx Oxycodone HCl/Acetaminophen 1 each PO Q6HR PRN #30 tablet 09/07/18 Unknown Rx [Percocet 7.5/325 mg] HYDROcodone/APAP 7.5-325 [[place] 1 each PO Q6HR PRN #15 tablet 05/05/19 Unknown Rx 7.5/325] Allergies Allergy/AdvReac Type Severity Reaction Status Date / Time No Known Allergies Allergy Verified 08/24/18 11:08 ED Review of Systems ROS: Stated complaint: DVT Other details as noted in HPI Constitutional: denies: chills, fever Eyes: denies: eye pain, eye discharge, vision change ENT: denies: ear pain, throat pain Respiratory: shortness of breath. denies: cough, wheezing Cardiovascular: denies: chest pain, palpitations Endocrine: no symptoms reported Gastrointestinal: denies: abdominal pain, nausea, diarrhea Genitourinary: denies: urgency, dysuria, discharge Musculoskeletal: denies: back pain, joint swelling, arthralgia Skin: denies: rash, lesions Neurological: denies: headache, weakness, paresthesias Psychiatric: denies: anxiety, depression Hematological/Lymphatic: denies: easy bleeding, easy bruising ED Past Medical Hx - Past Medical History Previous Medical History?: Yes Hx Hypertension: No Hx CVA: No Hx Heart Attack/AMI: No Hx Congestive Heart Failure: No Hx Diabetes: No Hx Deep Vein Thrombosis: Yes Hx Pulmonary Embolism: No Hx GERD: No Hx Liver Disease: No Hx Renal Disease: No Hx of Cancer: No Hx Sickle Cell Disease: No Hx Arthritis: No Hx Headaches / Migraines: No Hx Seizures: No Hx Kidney Stones: No Hx Psychiatric Treatment: No Hx Asthma: No Hx COPD: No Hx Tuberculosis: No Hx Dementia: No Hx HIV: No Additional medical history: Blood clot in left leg (03,04,14) and groin area 14 - Surgical History Past Surgical History?: Yes Hx Coronary Stent: No Hx Open Heart Surgery: No Hx Pacemaker: No Hx Internal Defibrillator: No Hx Cholecystectomy: No Hx Appendectomy: No Hx Breast Surgery: No Additional Surgical History: tubal ligation - Family History Family history: no significant - Social History Smoking Status: Former Smoker Substance Use Type: Alcohol, Marijuana - Medications Home Medications: Home Medications Medication Instructions Recorded Confirmed Last Taken Type traMADol [Ultram 50 MG tab] 50 mg PO Q6HR PRN #12 tablet 02/27/18 09/06/18 09/05/18 10:00 Rx Apixaban [Eliquis] 5 mg PO DAILY #30 tablet 06/27/18 08/31/18 08/24/18 Rx traMADol [Ultram 50 MG tab] 50 mg PO Q4HR PRN #14 tablet 06/27/18 09/06/18 09/05/18 22:00 Rx Docusate Sodium [Colace] 100 mg PO BID PRN #60 capsule 09/07/18 Unknown Rx Ferrous Sulfate [Feosol 325 MG tab] 325 mg PO BID #60 tablet 09/07/18 Unknown Rx Oxycodone HCl/Acetaminophen 1 each PO Q6HR PRN #30 tablet 09/07/18 Unknown Rx [Percocet 7.5/325 mg] HYDROcodone/APAP 7.5-325 [[place] 1 each PO Q6HR PRN #15 tablet 05/05/19 Unknown Rx 7.5/325] ED Physical Exam - General Limitations: No Limitations General appearance: alert, in no apparent distress - Head Head exam: Present: atraumatic, normocephalic - Eye Eye exam: Present: normal appearance - ENT ENT exam: Present: mucous membranes moist - Neck Neck exam: Present: normal inspection - Respiratory Respiratory exam: Present: normal lung sounds bilaterally. Absent: respiratory distress, wheezes, rales, chest wall tenderness, accessory muscle use, decreased breath sounds - Cardiovascular Cardiovascular Exam: Present: regular rate, normal rhythm. Absent: systolic murmur, diastolic murmur, rubs, gallop - GI/Abdominal GI/Abdominal exam: Present: soft, normal bowel sounds. Absent: distended, tenderness, guarding - Rectal Rectal exam: Present: deferred - Extremities Exam Extremities exam: Present: normal inspection, tenderness (left lower extremity tenderness), pedal edema, calf tenderness (left calf tenderness) - Back Exam Back exam: Present: normal inspection - Neurological Exam Neurological exam: Present: alert, oriented X3 - Psychiatric Psychiatric exam: Present: normal affect, normal mood - Skin Skin exam: Present: warm, dry, intact, normal color. Absent: rash ED Course Vital Signs 05/04/19 05/04/19 05/05/19 22:12 22:33 00:34 Temperature 98.3 F 98.3 F 97.9 F Pulse Rate 83 83 75 Respiratory 18 18 16 Rate Blood Pressure 150/103 Blood Pressure 150/103 151/101 [Right] O2 Sat by Pulse 97 97 100 Oximetry 05/05/19 00:36 Temperature Pulse Rate Respiratory 16 Rate Blood Pressure Blood Pressure [Right] O2 Sat by Pulse Oximetry - Reevaluation(s) Reevaluation #1: I discussed all results with patient. Patient will need to return to the hospital in the morning for a ultrasound of her left lower extremity. Patient will be given Lovenox therapeutic dose prior to discharge. Patient is stable for discharge. Patient will be discharged home. Patient agrees with plan of care. Patient given discharge instructions. Patient voiced understanding discharge instructions. 05/05/19 01:22 ED Medical Decision Making - Lab Data Result diagrams: 05/04/19 23:37 05/04/19 23:37 - EKG Data -: EKG Interpreted by Me EKG shows normal: sinus rhythm, axis, intervals, QRS complexes, ST-T waves Rate: normal - Radiology Data Radiology results: report reviewed CTA CHEST WITH IV CONTRAST INDICATION: HX DVT / SOB CONTRAST: 100 cc Omnipaque 350 IV COMPARISON: None available. Three-plane MIP reconstructions were produced. All CT scans at this location are performed using CT dose reduction for ALARA by means of automated exposure control. FINDINGS: Mild basilar atelectatic changes are seen. Lung vazquez otherwise are clear. No mediastinal or hilar masses are noted. No significant axillary or chest wall abnormalities are seen. Views of the upper abdomen show no acute abnormalities. A 2.7 cm cystic area is seen in the left upper quadrant with an internal density just above the water range at 26 Hounsfield units. This has a benign appearance and is directly adjacent to the spleen, tail the pancreas, and somewhat to the upper pole the left kidney. Source is not clear. No inflammation is seen. Aorta shows no aneurysmal dilatation or obvious evidence of dissection. Good opacification of the pulmonary arterial system was achieved. I do not see evidence of pulmonary thromboembolism. IMPRESSION: 1. No significant acute abnormalities are seen. No evidence of pulmonary thromboembolism. 2. Cystic area of the left upper quadrant, probably benign, of unclear etiology. Recommend follow- up. - Medical Decision Making Patient is a 39-year-old female that presents emergency room with complaints of left lower extremity swelling and pain and shortness of breath at times. Zoie ent has a long history of DVTs. Patient had a CTA due to her symptoms and her CT was negative for PE. Patient given a therapeutic dose of Lovenox. Patient discharged home. Patient discharged home with a outpatient order to have an ultrasound done of the left lower extremity. Patient will need to return to the ER for treatment if the ultrasound is positive. - Differential Diagnosis lower extremity swelling and pain. Shortness of breath. PE. DVT. Critical care attestation.: If time is entered above; I have spent that time in minutes in the direct care of this critically ill patient, excluding procedure time. ED Disposition Clinical Impression: H/O deep venous thrombosis, Left leg pain, Leg swelling, SOB (shortness of breath), Elevated d-dimer Disposition: TO HOME OR SELFCARE Is pt being admited?: No Does the pt Need Aspirin: No Condition: Stable Additional Instructions: Patient to follow up with primary care in 2-3 days. Patient to return to the hospital for for ultrasound of lower extremities. Patient to return to ER if condition worsens. Patient to take meds as directed. Patient increase water. . Patient to take Tylenol or ibuprofen when necessary for pain. Prescriptions: HYDROcodone/APAP 7.5-325 [[place] 7.5/325] 1 each PO Q6HR PRN #15 tablet PRN Reason: Pain Referrals: FLORY AYALA MD [Primary Care Provider] - 2-3 Days Time of Disposition: 01:30
[2019-05-04 23:58] LABS: Basophils % (Auto) 0.7 % (0.0-1.8); Eosinophils # (Auto) 0.1 K/mm3 (0.0-0.4); Hematocrit 38.5 % (30.3-42.9); Hemoglobin 12.6 gm/dl (10.1-14.3); Lymphocytes # (Auto) 1.9 K/mm3 (1.2-5.4); Lymphocytes % (Auto) 28.4 % (13.4-35.0); Mean Corpuscular HGB Conc 33 % (30-34); Mean Corpuscular Volume 88 fl (79-97); Monocytes # (Auto) 0.5 K/mm3 (0.0-0.8); Monocytes % (Auto) 8.1 % (0.0-7.3); Platelet Count 243 K/mm3 (140-440); Red Blood Count 4.39 M/mm3 (3.65-5.03); Red Cell Distribution Width 16.8 % (13.2-15.2)
[2019-05-05 00:04] LABS: INR 0.95 (0.87-1.13)
[2019-05-05 00:05] LABS: Partial Thromboplastin Time 31.8 Sec. (24.2-36.6)
[2019-05-05 00:12] LABS: Alanine Aminotransferase 13 units/L (7-56); Albumin 3.8 g/dL (3.9-5); BUN/Creatinine Ratio 10; Blood Urea Nitrogen 7 mg/dL (7-17); Calcium 9.4 mg/dL (8.4-10.2); Hemolysis Index 6
[2019-05-05] MEDS ORDERED: DILAUDID IV ONE (00:18)
[2019-05-05] MEDS ORDERED: DILAUDID ONE (00:21)
--- NOTE | 2019-05-05 00:32 | Cat Scan Report ---
CTA CHEST WITH IV CONTRAST INDICATION: HX DVT / SOB CONTRAST: 100 cc Omnipaque 350 IV COMPARISON: None available. Three-plane MIP reconstructions were produced. All CT scans at this location are performed using CT d ose reduction for echoBaseRA by means of automated exposure control. FINDINGS: Mild basilar atelectatic changes are seen. Lung vazquez otherwise are clear. No mediastinal or hilar masses are noted. No significant axillary or chest wall abnormalities are seen. Views of the upper abdomen show no acute abnormalities. A 2.7 cm cystic area is seen in the left upper quadrant w ith an internal density just above the water range at 26 Hounsfield units. This has a benign appearan ce and is directly adjacent to the spleen, tail the pancreas, and somewhat to the upper pole the left kidney. Source is not clear. No inflammation is seen. Aorta shows no aneurysmal dilatation or obvious evidence of dissection. Good opacification of the pulmonary arterial system was achieved. I do not see evidence of pulmonary thromboembolism. IMPRESSION: 1. No significant acute abnormalities are seen. No evidence of pulmonary thromboembolism. 2. Cystic area of the left upper quadrant, probably benign, of unclear etiology. Recommend follow-up. Signer Name: Kevin Armas MD Signed: 05/05/2019 12:27 AM Workstation Name: [id number]
[2019-05-05 00:53] LABS: Bacteria,Urine 1+ /HPF (Negative); Bilirubin,Urine NEG (Negative); Blood,Urine NEG (Negative); Color,Urine Yellow (Yellow); Protein,Urine <15 mg/dL mg/dL (Negative); Urobilinogen,Urine < 2.0 mg/dL (<2.0); WBC,Urine < 1.0 /HPF (0.0-6.0)
[2019-05-05] MEDS ORDERED: LOVENOX SUB-Q ONE (01:29)
[2019-05-05 03:02] VITALS: BP 139/95
== END 2019-05-05 02:20 | disposition home or self-care (01) ==
LOC: ED 22:02
DX: R06.02 Shortness of breath (principal); R22.42 Localized swelling, mass and lump, left lower limb; M79.605 Pain in left leg; F17.200 Nicotine dependence, unspecified, uncomplicated; F12.10 Cannabis abuse, uncomplicated; Z86.718 Personal history of other venous thrombosis and embolism; Z79.01 Long term (current) use of anticoagulants
CPT/HCPCS: 36415; 71275; 80053; 81001; 85025; 85379; 85610; 85730; 93005; 93010; 96372; 96374; 99284; J1170; J1650; Q9967; J2405

== ENCOUNTER 2019-05-05 10:01 | Outpatient (CLI) | payer MEDICARE ==
--- NOTE | 2019-05-05 16:51 | Vascular Lab Report ---
VL venous duplex LE BILAT INDICATION / CLINICAL INFORMATION: SOB; BLE SWELLING. COMPARISON: None available. FINDINGS: No evidence of deep vein thrombosis in the right leg. Chronic, nonocclusive thrombus is demonstrated in the left femoral and popliteal veins. IMPRESSION: 1. Chronic DVT on the left. 2. No acute deep vein thrombosis. Signer Name: Kiet Disla MD Signed: 05/05/2019 4:46 PM Workstation Name: [id number]
== END 2019-05-05 10:02 | disposition home or self-care (01) ==
LOC: VAS 10:01
PROVIDERS: ATTEND Family Medicine
DX: I82.512 Chronic embolism and thrombosis of left femoral vein (principal); I82.532 Chronic embolism and thrombosis of left popliteal vein; E11.9 Type 2 diabetes mellitus without complications; F41.9 Anxiety disorder, unspecified
CPT/HCPCS: 93970